=== PATIENT | female | born 1965 | race Hispanic/Latino ===

== ENCOUNTER → 2024-08-16 | Outpatient (CLI) | payer OTHER ==
--- NOTE | 2024-08-16 17:23 | HMCIMG ---
LUMBAR SPINE 2-3VWS HISTORY: Herniated disc COMPARISON: None FINDINGS: 2 images of lumbar spine were obtained. Vascular calcifications are seen. Anterior osteophytes are seen at L3 and L4 level superiorly. There is straightening of normal lordotic curvature which may be related to muscle spasm or positioning. No loss of vertebral height is seen. No fracture or dislocation is seen. Degenerative changes are seen. IMPRESSION: 1. No fracture is seen.
== END | disposition home or self-care (01) ==
LOC: RAH 16:04
PROVIDERS: ATTEND Internal Medicine
DX: M47.816 Spondylosis without myelopathy or radiculopathy, lumbar region (principal); M25.78 Osteophyte, vertebrae; M51.9 Unspecified thoracic, thoracolumbar and lumbosacral intervertebral disc disorder; M54.30 Sciatica, unspecified side; K46.9 Unspecified abdominal hernia without obstruction or gangrene
CPT/HCPCS: 72100